=== PATIENT | male | born 1980 | race Asian ===

== ENCOUNTER 2024-07-13 08:26 | Emergency (ER) | payer SELFPAY ==
[~2024-07-13] VITALS: Ht 170.2 cm; Wt 68.0 kg
[2024-07-13] MEDS ORDERED: TDAP DIPH,PERTUSS,TET VAC/PF 0.5 ML DISP.SYRIN IM ONE (09:46)
[2024-07-13] MEDS ORDERED: CEphaleXIN 500 MG CAPSULE ONE (10:04)
[2024-07-13] MEDS ORDERED: LIDOCAINE HCL 1% 20 ML VIAL ONE (10:04)
[2024-07-13] MEDS: CEphaleXIN 500 MG CAPSULE PO ONE (10:06)
[2024-07-13] MEDS: LIDOCAINE HCL 1% 20 ML VIAL TP ONE (10:06)
[2024-07-13] MEDS: TDAP DIPH,PERTUSS,TET VAC/PF 0.5 ML DISP.SYRIN IM ONE (10:12)
[2024-07-13] MEDS ORDERED: IBUP-1957 PO (10:42)
[2024-07-13] MEDS ORDERED: CEPH500C2 PO (10:42)
[2024-07-13] MEDS ORDERED: NEOMY/BACITRA/POLYMYXIN B OINT UD PACKET TP ONE (10:48)
[2024-07-13] MEDS: NEOMY/BACITRA/POLYMYXIN B OINT UD PACKET TP ONE (11:04)
[2024-07-13 11:09] VITALS: BP 125/72; O2SAT 98
== END 2024-07-13 10:55 | disposition home or self-care (01) ==
LOC: ER 08:26
DX: S61.411A Laceration without foreign body of right hand, initial encounter (principal); Z79.899 Other long term (current) drug therapy; X58.XXXA Exposure to other specified factors, initial encounter; Y93.89 Activity, other specified; Y92.89 Other specified places as the place of occurrence of the external cause; Y99.8 Other external cause status
CPT/HCPCS: 12042; 73120; 90471; 90715; 99284; J3490; A4606; A4663